=== PATIENT | male | born 1950 | race Caucasian/White ===

== ENCOUNTER 2018-07-24 09:05 | Day surgery (SDC) | payer MEDICARE, OTHER ==
[~2018-07-24 09:05] MED LIST: Lactated Ringers 1,000 ML IV SCH
[2018-07-24] MEDS ORDERED: fentaNYL 100 MCG/2 ML SDV ONE (10:01)
[2018-07-24] MEDS ORDERED: Propofol 200 MG/20 ML SDV ONE ×2 (10:01→11:12)
[2018-07-24] MEDS ORDERED: Lidocaine 2% 100 MG/5 ML Syringe ONE (10:04)
--- NOTE | 2018-07-24 12:42 | OR ---
PREOPERATIVE DIAGNOSIS: Esophageal stricture. POSTOPERATIVE DIAGNOSES: 1. Tortuous esophagus with tight gastroesophageal junction. 2. Small hiatal hernia. PROCEDURE PROPOSED: Upper gastrointestinal panendoscopy with antral biopsies. PROCEDURE DONE: Upper gastrointestinal panendoscopy with antral biopsies. INDICATION: This is a 67-year-old gentleman who has a history of known esophageal strictures and being dilated in the past. His last one was approximately 4 years ago done by myself. He states he has also had a couple done in [place]. He comes in now for recommended evaluation of his problem. TECHNIQUE: The patient was brought to the endoscopy suite, placed in left lateral decubitus position. He was sedated per [employer] with propofol. The flexible video gastroscope was then passed transorally, and under visualization, advanced through the esophagus. He had a rather tortuous distal esophagus and the GE junction did appear to be tight. There was not an actual scarred down stricture, but it was snug to the point where I had difficulty passing the scope through. I was able to then pass the scope through the area. I evaluated the stomach, which appeared unremarkable. There were no signs of any ulcers or antritis. He also had somewhat of a tight pylorus, but I was able to get through the pylorus and advanced well into the fourth portion of the duodenum. The duodenum appeared normal. The antrum and body of the stomach also were normal. Couple antral biopsies were taken to rule out H. pylori and it was felt that he should proceed with dilation. FINAL IMPRESSION: Distal esophageal narrowing with tortuous esophagus. PLAN: Antral biopsies were taken to rule out H. pylori and he should proceed with endoscopic balloon dilation. SCM: 07/24/2018 11:42:24 MODL: 07/24/2018 12:36:22 /[id number]
--- NOTE | 2018-07-24 12:42 | OR ---
PREOPERATIVE DIAGNOSIS: Tight gastroesophageal junction with tortuous esophagus. POSTOPERATIVE DIAGNOSIS: Tight gastroesophageal junction with tortuous esophagus. PROCEDURE PROPOSED: Endoscopic balloon dilation. PROCEDURE DONE: Endoscopic balloon dilation. TECHNIQUE: The patient was already sedated and the endoscope was in his esophagus. I then passed the initial dilating balloon 12 to 15 mm in size and started and placed the balloon across the GE junction approximately 5 cm on each side of the junction and went initially to 12 mm, followed by 13.5, followed by 15 mm. There was no significant bleeding. I therefore advanced to the second balloon which is 15 to 18 going through the stages of 15 mm, followed by 16.5, followed by 18. There was some fracturing of the tightness. I then felt that we could go further and passed an 18 to 20 mm balloon and going through the stages again starting with 18 mm, followed by 19 and eventually 20 mm. There was some minor bleeding and some slight tearing, but it was felt that a good dilation had been obtained. We stopped at 20 mm and the balloon was deflated and the area inspected and irrigated and everything looked good and the endoscope and balloon were then removed. He tolerated the procedure well. FINAL IMPRESSION: Tight gastroesophageal junction with tortuosity, dilated to 20 mm. PLAN: The patient was told that he likely would have a recurrence down the road. Hopefully, he could go up to 5 years at which point he would also need his colonoscopy done again and they could both be done at the same time. SCM: 07/24/2018 11:42:24 MODL: 07/24/2018 12:38:08 /[id number]
--- NOTE | 2018-07-24 12:48 | OR ---
PREOPERATIVE DIAGNOSIS: History of polyps. POSTOPERATIVE DIAGNOSIS: Normal colonoscopic exam. PROCEDURE PROPOSED: Total flexible colonoscopy. PROCEDURE DONE: Total flexible colonoscopy. INDICATION: A 67-year-old gentleman who comes in for colonic surveillance due to history of polyps. His last examination was 6 years ago. TECHNIQUE: The patient was brought to the endoscopy suite. He was already sedated from his EGD procedure. He was in the left lateral decubitus position. The flexible video colonoscope was then passed transanally, and under visualization, advanced to the cecum. The ileocecal valve and entrance to the ileum and cecum all appeared unremarkable. The ascending, transverse, and descending colon also appeared normal as the scope was then slowly withdrawn. The sigmoid colon also did not reveal any diverticulosis or polyps or other abnormalities, and the rectum was normal and the scope was then withdrawn. He tolerated the procedure well. FINAL IMPRESSION: 1. Normal colonoscopic exam. 2. History of previous polyps. PLAN: He should consider continuing with colonic surveillance every 5 years hereafter. SCM: 07/24/2018 11:42:24 MODL: 07/24/2018 12:39:35 /[id number]
--- NOTE | 2018-07-30 08:49 | LETTER ---
07/30/2018 Eliot Maciel RE: ELIOT MACIEL : 1950 Dear Eliot: The biopsy taken from your stomach did not reveal that you have the Helicobacter pylori bacteria in your stomach; therefore, you do not need any special medication. I am hoping that with the dilation that you had done that your swallowing has improved. Respectfully,
== END 2018-07-24 12:07 | disposition home or self-care (01) ==
LOC: VM.SDS 09:05
PROVIDERS: ATTEND Surgery
DX: K22.2 Esophageal obstruction (principal); Z86.010 Personal history of colon polyps; J43.9 Emphysema, unspecified; E78.5 Hyperlipidemia, unspecified; N40.0 Benign prostatic hyperplasia without lower urinary tract symptoms; G40.909 Epilepsy, unspecified, not intractable, without status epilepticus; E66.9 Obesity, unspecified; Z68.34 Body mass index [BMI] 34.0-34.9, adult; Z87.891 Personal history of nicotine dependence
CPT/HCPCS: 00813; 88305; J2001; J2704; J3010; J7120

== ENCOUNTER 2022-05-31 21:19 | Observation (INO) | payer BC, MEDICARE, OTHER, SELFPAY ==
[2022-05-31] MEDS ORDERED: Sodium Chloride 0.9% 1,000 ML IV ONE (22:10)
[2022-05-31 22:19] LABS: BARBITURATE SCREEN,URINE POSITIVE (NEGATIVE); BENZODIAZEPINES SCREEN,URINE NEGATIVE (NEGATIVE); BUPRENORPHINE SCREEN,URINE NEGATIVE (NEGATIVE); METHAMPHETAMINE SCREEN, URINE NEGATIVE (NEGATIVE); THC SCREEN,URINE 50 NG/ML NEGATIVE (NEGATIVE)
[2022-05-31 22:24] LABS: ANION GAP 14.4 mmol/L (5-15)
[2022-05-31] MEDS ORDERED: Sodium Chloride 0.9% 10 ML Syringe FLUSH PRN (22:43)
[2022-05-31] MEDS ORDERED: Ondansetron 4 MG/2 ML SDV IV PRN (22:43)
[2022-05-31] MEDS ORDERED: Ondansetron 4 MG Tab.DIS PO PRN (22:43)
[2022-05-31] MEDS ORDERED: Acetaminophen 325 MG Tab PO PRN (22:43)
[2022-06-01 07:03] LABS: ANION GAP 11.3 mmol/L (5-15)
[2022-06-01] MEDS ORDERED: AMLODIPINE 2.5 MG PO SCH (09:00)
[2022-06-01] MEDS ORDERED: DULoxetine 60 MG Cap (OWN SUPPLY) PO SCH (09:00)
[2022-06-01] MEDS ORDERED: Oxybutynin 5 MG Tab.ER PO SCH (09:00)
[2022-06-01] MEDS ORDERED: Gabapentin 300 MG Cap (OWN SUPPLY) PO SCH (09:00)
[2022-06-01] MEDS ORDERED: Cyanocobalamin (Vitamin B12) 1,000 MCG Tab PO SCH (09:15)
[2022-06-01] MEDS ORDERED: Calcium Carbonate/Vitamin D3 1250 MG-5 MCG Tab PO SCH (09:15)
[2022-06-01] MEDS ORDERED: OXYBUTYNIN 15 MG PO SCH (09:30)
[2022-06-01] MEDS ORDERED: Tamsulosin 0.4 MG Cap.ER (OWN SUPPLY) PO SCH (09:30)
[2022-06-01] MEDS ORDERED: OMEPRAZOLE 40 MG PO SCH (09:30)
[2022-06-01] MEDS ORDERED: FENOFIBRATE NANOCRYSTALLIZED 48 MG PO SCH (09:30)
[2022-06-01] MEDS ORDERED: PHENYTOIN 100 MG PO SCH (21:00)
[2022-06-01] MEDS ORDERED: ROSUVASTATIN 5 MG PO SCH (21:00)
== END 2022-06-01 13:05 | disposition home or self-care (01) ==
LOC: VM.ED 21:19 → VM.MS 22:33
PROVIDERS: ADMIT Physician Assistant Medical; ATTEND Physician Assistant Medical
DX: R55 Syncope and collapse (principal); R00.1 Bradycardia, unspecified; J44.9 Chronic obstructive pulmonary disease, unspecified; E78.00 Pure hypercholesterolemia, unspecified; N40.0 Benign prostatic hyperplasia without lower urinary tract symptoms; F17.210 Nicotine dependence, cigarettes, uncomplicated; Z79.899 Other long term (current) drug therapy
CPT/HCPCS: 36415; 70450; 80048; 80053; 80305; 80307; 81001; 82550; 83615; 84484; 85025; 86140; 93005; 99285; A9270; G0378; J7030

== ENCOUNTER 2022-08-21 03:15 | Emergency (ER) | payer MEDICARE, OTHER ==
[2022-08-21] MEDS ORDERED: Sodium Chloride 0.9% 10 ML Syringe FLUSH PRN (03:47)
[2022-08-21 04:12] LABS: BASOPHILS PERCENT AUTO 0.4 % (0.2-1.2); EOSINOPHILS ABSOLUTE AUTO 0.2 x10^3/uL (0.0-0.5); EOSINOPHILS PERCENT AUTO 2.9 % (0.0-4.0); HEMATOCRIT 35.2 % (40.0-52.0); HEMOGLOBIN 12.8 g/dL (14.0-18.0); IMMATURE GRAN ABSOLUTE AUTO 0.03 x10^3/uL (0.00-0.07); LYMPHOCYTES PERCENT AUTO 26.3 % (25.0-50.0); MEAN CORPUSCULAR HEMOGLOBIN 34.9 pg (26.0-32.0); MEAN CORPUSCULAR HGB CONC 36.4 g/dL (32.0-36.0); MEAN CORPUSCULAR VOLUME 95.9 fL (78.0-93.0); MONOCYTES ABSOLUTE AUTO 0.7 x10^3/uL (0.0-0.8); MONOCYTES PERCENT AUTO 8.9 % (2.0-11.0); NEUTROPHILS ABSOLUTE AUTO 4.7 x10^3/uL (1.8-7.7); NEUTROPHILS PERCENT AUTO 61.1 % (50.0-80.0); PLATELET COUNT,PLT 189 x10^3/uL (130-400); RED BLOOD CELL COUNT 3.67 x10^6/uL (4.5-6.0); WHITE BLOOD CELL COUNT,WBC 7.7 x10^3/uL (4.0-10.0)
== END 2022-08-21 05:32 | disposition short-term general hospital (02) ==
LOC: VM.ED 03:15
CPT/HCPCS: 36415; 85025; 99284

== ENCOUNTER 2023-04-21 18:26 | Inpatient (IN) | payer MEDICARE ==
[2023-04-21 18:53] LABS: BASOPHILS PERCENT AUTO 0.2 % (0.2-1.2); EOSINOPHILS PERCENT AUTO 0.6 % (0.0-4.0); HEMATOCRIT 38.1 % (40.0-52.0); HEMOGLOBIN 13.1 g/dL (14.0-18.0); IMMATURE GRAN ABSOLUTE AUTO 0.01 x10^3/uL (0.00-0.07); LYMPHOCYTES ABSOLUTE AUTO 0.7 x10^3/uL (1.0-4.8); LYMPHOCYTES PERCENT AUTO 10.9 % (25.0-50.0); MEAN CORPUSCULAR HEMOGLOBIN 33.9 pg (26.0-32.0); MEAN CORPUSCULAR HGB CONC 34.4 g/dL (32.0-36.0); MEAN CORPUSCULAR VOLUME 98.7 fL (78.0-93.0); MONOCYTES ABSOLUTE AUTO 0.5 x10^3/uL (0.0-0.8); MONOCYTES PERCENT AUTO 7.5 % (2.0-11.0); NEUTROPHILS ABSOLUTE AUTO 5.2 x10^3/uL (1.8-7.7); NEUTROPHILS PERCENT AUTO 80.6 % (50.0-80.0); PLATELET COUNT,PLT 162 x10^3/uL (130-400); RED BLOOD CELL COUNT 3.86 x10^6/uL (4.5-6.0); WHITE BLOOD CELL COUNT,WBC 6.4 x10^3/uL (4.0-10.0)
[2023-04-21 19:06] LABS: INR 1.8 (0.9-1.1); PROTHROMBIN TIME 19.3 SEC (9.5-12.2)
[2023-04-21 19:11] LABS: A/G RATIO 0.89; ALANINE AMINOTRANSFERASE,ALT 19 U/L (16-63); ALBUMIN 3.2 g/dL (3.4-5.0); ALKALINE PHOSPHATASE 56 U/L (46-116); ASPARTATE AMNIOTRANSFERASE,AST 23 U/L (15-37); BILIRUBIN TOTAL 0.3 mg/dL (0.2-1.0); BLOOD UREA NITROGEN,BUN 16 mg/dL (7-18); C-REACTIVE PROTEIN 4.99 mg/dL (<=0.50); CALCIUM 8.6 mg/dL (8.5-10.1); CARBON DIOXIDE,CO2 27 mmol/L (21-32); CHLORIDE,CL 102 mmol/L (98-107); CREATININE 1.1 mg/dL (0.70-1.30); GLUCOSE RANDOM 102 mg/dL (70-99); POTASSIUM,K 3.9 mmol/L (3.5-5.1); PROTEIN TOTAL,TP 6.8 g/dL (6.4-8.2); SODIUM,NA 139 mmol/L (136-145)
[2023-04-21 19:12] LABS: ANION GAP 13.9 mmol/L (5-15); ESTIMATED GFR 72 mL/min (>=60)
[2023-04-21 20:17] LABS: APPEARANCE,URINE SLIGHTLY CLOUDY (CLEAR); BILIRUBIN,URINE NEGATIVE (NEGATIVE); COLOR,URINE YELLOW (YELLOW); GLUCOSE,URINE NEGATIVE (NEGATIVE); KETONES,URINE NEGATIVE (NEGATIVE); LEUKOCYTE ESTERASE,URINE NEGATIVE (NEGATIVE); NITRITE,URINE NEGATIVE (NEGATIVE); OCCULT BLOOD,URINE MODERATE (NEGATIVE); PH,URINE 8.5 (5.0-8.0); PROTEIN,URINE NEGATIVE (NEGATIVE); UROBILINOGEN,URINE 0.2 EU/dL (0.2)
[2023-04-21 20:26] LABS: BACTERIA,URINE FEW /HPF (NOT SEEN); SQUAMOUS EPITHELIAL CELLS,UR OCCASIONAL /HPF (NOT SEEN); WBC,URINE 0-5 /HPF (NOT SEEN)
[2023-04-21 20:27] LABS: AMORPHOUS SEDIMENT,URINE MODERATE; MUCUS,URINE NOT SEEN /LPF (NOT SEEN)
[2023-04-21] MEDS ORDERED: Ondansetron 4 MG Tab.DIS PO PRN (23:18)
[2023-04-21] MEDS ORDERED: Sodium Chloride 0.9% 10 ML Syringe FLUSH PRN (23:18)
[2023-04-21] MEDS ORDERED: Acetaminophen 325 MG Tab PO PRN (23:18)
[2023-04-21] MEDS ORDERED: Non-Formulary Medication 1 Each (Nicotine Polacrilex 2 MG Gum) BC PRN (23:20)
[2023-04-22] MEDS: DULoxetine 60 MG Cap PO SCH (08:52)
[2023-04-22] MEDS: Cyanocobalamin (Vitamin B12) 1,000 MCG Tab PO SCH (08:52)
[2023-04-22] MEDS: Oxybutynin 5 MG Tab.ER PO SCH (08:53)
[2023-04-22] MEDS: amLODIPine 2.5 MG Tab PO SCH (08:54)
[2023-04-22] MEDS: Tamsulosin 0.4 MG Cap.ER PO SCH (08:54)
[2023-04-22] MEDS: Magnesium Chloride 64 MG Tab.ER PO SCH (08:54)
[2023-04-22] MEDS: Calcium Carbonate/Vitamin D3 1250 MG-5 MCG Tab PO SCH (08:55)
[2023-04-22] MEDS: Pantoprazole 40 MG Tab.CR PO SCH (08:55)
[2023-04-22] MEDS: Gabapentin 300 MG Cap PO SCH (08:56)
[2023-04-22] MEDS: Folic Acid 0.4 MG Tab PO SCH (08:57)
[2023-04-22] MEDS ORDERED: FENOFIBRATE NANOCRYSTALLIZED 48 MG PO SCH (09:00)
[2023-04-22] MEDS ORDERED: Phenytoin 100 MG Cap.ER PO SCH (21:00)
[2023-04-22] MEDS ORDERED: Warfarin 5 MG Tab PO SCH (21:00)
[2023-04-22] MEDS ORDERED: Rosuvastatin 20 MG Tab PO SCH (21:00)
== END 2023-04-22 19:00 | disposition home or self-care (01) | DRG 74 ==
LOC: VM.ED 18:26 → OBSVTOIN 20:28 → VM.MS 20:28
PROVIDERS: ADMIT Physician Assistant Medical; ATTEND Physician Assistant Medical
DX: S00.03XA Contusion of scalp, initial encounter (principal); G62.9 Polyneuropathy, unspecified; S00.93XA Contusion of unspecified part of head, initial encounter; R53.1 Weakness; F17.210 Nicotine dependence, cigarettes, uncomplicated; W18.30XA Fall on same level, unspecified, initial encounter; E78.00 Pure hypercholesterolemia, unspecified; R29.6 Repeated falls; J44.9 Chronic obstructive pulmonary disease, unspecified; Z98.890 Other specified postprocedural states; F17.200 Nicotine dependence, unspecified, uncomplicated; Z86.010 Personal history of colon polyps; Z79.01 Long term (current) use of anticoagulants; Z79.899 Other long term (current) drug therapy; W19.XXXA Unspecified fall, initial encounter
CPT/HCPCS: 70450; 80053; 80185; 81001; 85025; 85610; 86140; A9270-GY